=== PATIENT | female | born 1930 | race African-American/Black ===

== ENCOUNTER 2017-07-14 08:42 | Inpatient (IN) | payer OTHER, BC ==
[~2017-07-14] VITALS: Ht 160 cm; Wt 49.9 kg
[2017-07-14 08:42] VITALS: BP_SYST 153
[2017-07-14] MEDS ORDERED: NITROGLYCERIN 1 INCH (GM) OINT. TP ONE (09:00)
[2017-07-14] MEDS ORDERED: MEMA5TAB PO (09:20)
[2017-07-14] MEDS ORDERED: NEU300 PO (09:20)
[2017-07-14] MEDS ORDERED: ENAL10TA PO (09:20)
[2017-07-14] MEDS ORDERED: LOVA20TA2 PO (09:20)
[2017-07-14] MEDS ORDERED: VITD2000 PO (09:20)
[2017-07-14] MEDS ORDERED: ATEN-41 PO (09:20)
[2017-07-14] MEDS ORDERED: NOR10 PO (09:20)
[2017-07-14] MEDS ORDERED: ASPI81TA2 PO (09:20)
[2017-07-14] MEDS ORDERED: LOSA50TA3 PO (09:20)
[2017-07-14] MEDS ORDERED: MECL12.584 PO (09:20)
[2017-07-14] MEDS ORDERED: TRAM50TA92 PO (09:20)
[2017-07-14] MEDS ORDERED: PARO20TA51 PO (09:20)
[2017-07-14 09:30] LABS: BASOPHILS # (AUTO) 0.1 K/uL (0.0-0.2); EOSINOPHILS # (AUTO) 0.6 K/uL (0.0-0.4); EOSINOPHILS % (AUTO) 7.9 % (0.0-4.0); HEMOGLOBIN 12.3 g/dL (12.0-16.0); LYMPHOCYTES # (AUTO) 1.8 K/uL (1.0-5.5); LYMPHOCYTES % (AUTO) 23.2 % (20.5-51.5); MEAN CORPUSCULAR HEMOGLOBIN 26 pg (27-31); MEAN CORPUSCULAR HGB CONC 32 % (32-36); MEAN CORPUSCULAR VOLUME 82 fL (79.0-98.0); MONOCYTES # (AUTO) 0.6 K/uL (0.0-1.0); NEUTROPHILS # (AUTO) 4.5 K/uL (1.8-7.7); NEUTROPHILS % (AUTO) 59.9 % (40.0-70.0); PLATELET COUNT (AUTO) 272 K/uL (130-430); RED BLOOD CELL COUNT(AUTO) 4.65 MIL/uL (4.2-6.2); RED CELL DISTRIBUTION WIDTH 14.7 % (9.0-15.0); WHITE BLOOD COUNT (AUTO) 7.6 K/uL (4.8-10.8)
[2017-07-14 09:32] LABS: ANION GAP 8 (5-15); CALCIUM 9.1 mg/dL (8.4-11.0); CHLORIDE 109 mmol/L (98-107); CREATININE 0.89 mg/dL (0.55-1.30); GLUCOSE 116 mg/dL (70-99); POTASSIUM 4.1 mmol/L (3.5-5.1); SODIUM SERUM 140 mmol/L (136-145); UREA NITROGEN, BLOOD 15 mg/dL (8-21)
[2017-07-14 09:37] LABS: ALANINE AMINOTRANSFERASE 19 U/L (12-78); ALBUMIN 3.2 g/dL (3.4-4.8); ASPARTATE AMINOTRANSFERASE 19 U/L (10-37); PROTHROMBIN TIME 10.2 SECS (9.5-12.5); TOTAL BILIRUBIN 1.3 mg/dL (0.0-1.0)
[2017-07-14 10:16] LABS: BILIRUBIN,URINE NEGATIVE (NEGATIVE); BLOOD, URINE NEGATIVE (NEGATIVE); CLARITY/URINE CLEAR (CLEAR); COLOR,URINE YELLOW (YELLOW); GLUCOSE,URINE NEGATIVE (NEGATIVE); KETONES,URINE NEGATIVE (NEGATIVE); LEUKOCYTE ESTERASE ,URINE NEGATIVE (NEGATIVE); NITRITE, URINE NEGATIVE (NEGATIVE); PROTEIN URINE NEGATIVE (NEGATIVE); UROBILINOGEN,URINE 0.2 (0.2-1.0)
[2017-07-14 11:31] VITALS: BP_SYST 148
[2017-07-14] MEDS: amLODIPine BESYLATE 10 MG TABLET PO SCH (12:45)
[2017-07-14] MEDS: ENALAPRIL MALEATE 10 MG TABLET (VASOTEC) PO SCH (12:45)
[2017-07-14] MEDS ORDERED: amLODIPine BESYLATE 10 MG TABLET PO ONE (14:00)
[2017-07-14] MEDS ORDERED: ENALAPRIL MALEATE 10 MG TABLET (VASOTEC) PO ONE (14:00)
[2017-07-14] MEDS: traMADol HCL HCL 50 MG TABLET (ULTRAM) PO PRN (15:08)
[2017-07-14 15:28] VITALS: BP_SYST 137
[2017-07-14 20:00] VITALS: BP_SYST 136
[2017-07-14] MEDS: GABAPENTIN 300 MG CAPSULE PO SCH (20:50)
[2017-07-14] MEDS: MEMANTINE HCL 5 MG TABLET PO SCH (20:50)
[2017-07-14] MEDS: ASPIRIN 81 MG TAB.CHEW PO SCH (20:50)
[2017-07-14] MEDS: SIMVASTATIN 10 MG TABLET PO SCH (20:51)
[2017-07-14] MEDS: ATENOLOL 25 MG TABLET(TENORMIN) PO SCH (20:51)
[2017-07-14] MEDS ORDERED: LOVASTATIN 20 MG TABLET PO SCH (21:00)
[2017-07-15 01:18] VITALS: BP_SYST 135
[2017-07-15 04:50] VITALS: BP_SYST 147
[2017-07-15 07:12] LABS: BASOPHILS % (AUTO) 0.7 % (0.0-2.0); EOSINOPHILS # (AUTO) 0.6 K/uL (0.0-0.4); HEMATOCRIT 35.2 % (36-48); HEMOGLOBIN 11.1 g/dL (12.0-16.0); LYMPHOCYTES # (AUTO) 1.2 K/uL (1.0-5.5); LYMPHOCYTES % (AUTO) 19.9 % (20.5-51.5); MEAN CORPUSCULAR HEMOGLOBIN 26 pg (27-31); MEAN CORPUSCULAR HGB CONC 32 % (32-36); MEAN CORPUSCULAR VOLUME 82 fL (79.0-98.0); MONOCYTES # (AUTO) 0.6 K/uL (0.0-1.0); MONOCYTES % (AUTO) 9.9 % (1.7-9.3); NEUTROPHILS # (AUTO) 3.4 K/uL (1.8-7.7); NEUTROPHILS % (AUTO) 58.5 % (40.0-70.0); PLATELET COUNT (AUTO) 258 K/uL (130-430); RED BLOOD CELL COUNT(AUTO) 4.31 MIL/uL (4.2-6.2); RED CELL DISTRIBUTION WIDTH 14.9 % (9.0-15.0); WHITE BLOOD COUNT (AUTO) 5.8 K/uL (4.8-10.8)
[2017-07-15 07:57] VITALS: BP_SYST 166
[2017-07-15 07:57] LABS: ALANINE AMINOTRANSFERASE 17 U/L (12-78); ANION GAP 8 (5-15); ASPARTATE AMINOTRANSFERASE 17 U/L (10-37); CALCIUM 9.2 mg/dL (8.4-11.0); CHLORIDE 106 mmol/L (98-107); CREATININE 0.81 mg/dL (0.55-1.30); GLUCOSE 104 mg/dL (70-99); POTASSIUM 4.3 mmol/L (3.5-5.1); SODIUM SERUM 138 mmol/L (136-145); THYROID STIMULATING HORMONE 0.98 uIu/mL (0.34-4.82); TOTAL BILIRUBIN 1.2 mg/dL (0.0-1.0); UREA NITROGEN, BLOOD 13 mg/dL (8-21)
[2017-07-15] MEDS: PARoxetine HCL 20 MG TABLET PO SCH (09:16)
[2017-07-15] MEDS: CHOLECALCIFEROL (VITAMIN D3) 2,000 UNIT TABLET PO SCH (09:16)
[2017-07-15] MEDS: amLODIPine BESYLATE 10 MG TABLET PO SCH (09:17)
[2017-07-15] MEDS: ENALAPRIL MALEATE 10 MG TABLET (VASOTEC) PO SCH (09:17)
[2017-07-15 11:46] VITALS: BP_SYST 141
[2017-07-15] MEDS: traMADol HCL HCL 50 MG TABLET (ULTRAM) PO PRN (13:45)
[2017-07-15 15:22] VITALS: BP_SYST 144
[2017-07-15 20:00] VITALS: BP_SYST 141
[2017-07-15] MEDS: MEMANTINE HCL 5 MG TABLET PO SCH (21:33)
[2017-07-15] MEDS: SIMVASTATIN 10 MG TABLET PO SCH (21:33)
[2017-07-15] MEDS: GABAPENTIN 300 MG CAPSULE PO SCH (21:33)
[2017-07-15] MEDS: ATENOLOL 25 MG TABLET(TENORMIN) PO SCH (21:33)
[2017-07-15] MEDS: ASPIRIN 81 MG TAB.CHEW PO SCH (21:33)
[2017-07-16 01:05] VITALS: BP_SYST 165
[2017-07-16 03:38] VITALS: BP_SYST 169
[2017-07-16 08:00] VITALS: BP_SYST 154
[2017-07-16] MEDS: amLODIPine BESYLATE 10 MG TABLET PO SCH (09:15)
[2017-07-16] MEDS: PARoxetine HCL 20 MG TABLET PO SCH (09:16)
[2017-07-16] MEDS: CHOLECALCIFEROL (VITAMIN D3) 2,000 UNIT TABLET PO SCH (09:16)
[2017-07-16] MEDS: ENALAPRIL MALEATE 10 MG TABLET (VASOTEC) PO SCH (09:17)
[2017-07-16] MEDS: traMADol HCL HCL 50 MG TABLET (ULTRAM) PO PRN (09:21)
[2017-07-16 11:27] VITALS: BP_SYST 138
[2017-07-16 12:10] VITALS: BP_SYST 185
[2017-07-16 16:24] VITALS: BP_SYST 139
[2017-07-16 16:57] LABS: CHOLESTEROL 175 mg/dL (<200); HDL CHOLESTEROL 75 mg/dL (>55); LDL CHOLESTEROL 91 mg/dL (<100); TRIGLYCERIDES 47 mg/dL (30-150)
== END 2017-07-16 19:45 | DRG 313 ==
LOC: SED 08:42 → STU 10:32
PROVIDERS: ADMIT Internal Medicine; ATTEND Internal Medicine
DX: R07.89 Other chest pain (principal); F03.90 Unspecified dementia, unspecified severity, without behavioral disturbance, psychotic disturbance, mood disturbance, and anxiety; D64.9 Anemia, unspecified; I10 Essential (primary) hypertension; S30.0XXA Contusion of lower back and pelvis, initial encounter; W18.39XA Other fall on same level, initial encounter; I44.7 Left bundle-branch block, unspecified; E78.5 Hyperlipidemia, unspecified; F32.9 Major depressive disorder, single episode, unspecified; K44.9 Diaphragmatic hernia without obstruction or gangrene; E78.00 Pure hypercholesterolemia, unspecified; Z91.041 Radiographic dye allergy status; Z79.82 Long term (current) use of aspirin; Z79.899 Other long term (current) drug therapy; Z90.49 Acquired absence of other specified parts of digestive tract; Y93.89 Activity, other specified; Y92.89 Other specified places as the place of occurrence of the external cause; Y99.8 Other external cause status
CPT/HCPCS: 36415; 70450-TC; 71010; 72170-TC; 72192-TC; 73502; 74000-TC; 80053; 80061; 81003; 83735-TC; 83880; 84443-TC; 84484; 85025; 85610-TC; 93005; 93306; 93880; 97116-GP; 99285